=== PATIENT | male | born 1980 | race Caucasian/White ===

== ENCOUNTER 2020-08-16 13:15 | Outpatient (REF) | payer MEDICAID, SELFPAY ==
[2020-08-16 14:51] LABS: MANUAL DIFF FLAG NO
[2020-08-16 15:03] LABS: Basophils Absolute Auto 0.1 X10*3/uL (0.0-0.2); Basophils Percent Auto 0.6 % (0-2); Eosinophils Absolute Auto 0.2 X10*3/uL (0.0-0.4); Eosinophils Percent Auto 2.2 % (0-4); Hematocrit 48.8 % (42-52); Hemoglobin 16.7 g/dl (14.0-18.0); Imm Gran Abs Auto 0.07 X10*3/uL (0.00-0.03); Imm Gran Pct Auto 0.8 % (0.0-0.4); Lymphocytes Absolute Auto 2.4 X10*3/uL (1.2-4.9); Lymphocytes Percent Auto 28.4 % (20-40); Mean Corpuscular HGB Conc 34.2 g/dl (31.0-36.0); Mean Corpuscular Volume 87.6 fL (80-98); Mean Platelet Volume 11.3 fL (9.4-12.4); Monocytes Absolute Auto 0.7 X10*3/uL (0.1-1.2); Monocytes Percent Auto 8.6 % (2-11); Neutrophils Percent Auto 59.4 % (45-73); Platelet Count 246 X10*3/uL (160-400); Red Blood Count 5.57 X10*6/uL (4.60-5.80); Red Cell Distribution Width 13.2 % (11.0-16.0); White Blood Count 8.5 X10*3/uL (4.8-10.8)
[2020-08-16 15:39] LABS: Alanine Aminotransferase 43 U/L (0-40); Alkaline Phosphatase 47 U/L (39-117); Anion Gap 16 (12-20); Aspartate Amino Transferase 23 U/L (5-37); Bilirubin Total 1.1 mg/dL (0.0-1.0); Blood Urea Nitrogen 13 mg/dL (9-16); Calcium 9.5 mg/dL (8.4-10.2); Carbon Dioxide 27 mmol/L (22-29); Chloride 102 mmol/L (96-108); Cholesterol 202 mg/dL; Estimated Glomerular Filt Rate > 60; Glucose Random 88 mg/dL (60-115); Potassium 4.5 mmol/L (3.3-5.1); Sodium 140 mmol/L (135-145)
== END 2020-08-16 13:16 | disposition home or self-care (01) ==
LOC: HO.LAB 13:15
PROVIDERS: PCP Internal Medicine; Visit Provider Internal Medicine
DX: M79.601 Pain in right arm (principal); M79.89 Other specified soft tissue disorders; Z72.0 Tobacco use
CPT/HCPCS: 36415; 80053; 82465; 82550; 85025; 86140

== ENCOUNTER 2020-08-17 17:36 | Outpatient (REF) | payer MEDICAID, SELFPAY ==
--- NOTE | ~2020-08-17 | MR_ITS ---
EXAMINATION: MR ELBOW WITHOUT CONTRAST, RIGHT CLINICAL INFORMATION: Right upper arm pain, weakness, history of torn biceps. COMPARISON: None TECHNIQUE: MRI of the right elbow was performed without contrast on a high field MRI scanner. FINDINGS: MUSCLES/TENDONS: The biceps tendon and distal biceps muscle is not visualized. It may be retracted related to the history of a prior biceps tear. There is some very subtle increased signal along the insertion of the posterior triceps tendon. This could reflect tendinosis or some minimal intrasubstance partial tearing. No transverse defect or tendon retraction. See axial image 10 series 3. The remaining muscles and tendons are normal. LIGAMENTS: Normal. NEUROVASCULAR STRUCTURES: Normal. ARTICULAR CARTILAGE/MARROW: Normal. No effusion. BURSA: Normal. SUBCUTANEOUS SOFT TISSUES: Normal. MR/MR elbow RT wo con IMPRESSION: 1. Biceps tendon and distal muscle, not visualized, likely retracted, related to history of prior biceps tear. 2. Subtle finding along the distal posterior triceps may reflect tendinosis or some minimal intrasubstance partial tearing.
== END 2020-08-17 17:37 | disposition home or self-care (01) ==
LOC: HO.MRI 17:36
PROVIDERS: PCP Internal Medicine; Visit Provider Internal Medicine
DX: M79.621 Pain in right upper arm (principal)
CPT/HCPCS: 73221

== ENCOUNTER 2023-04-25 04:32 | Emergency (ER) | payer OTHER, SELFPAY ==
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
[2023-04-25 04:41] VITALS: PULSE 150; O2SAT 97
[2023-04-25 04:42] VITALS: BMI 33.9
[2023-04-25 04:54] VITALS: BP 131/95; PULSE 132; RESP 12; TEMP 36.8
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
--- NOTE | 2023-04-25 06:01 | PC.NURSE ---
pt currently refusing to provide urine sample at this time, explained to pt the need for urine for care team, pt currently denying to provide sample stating this is not fair .
--- OUTSIDE RECORDS SUMMARY | 2023-04-25 06:16 | XMS_ITS | Continuity of Care Document ---
Author Name Unknown Organization [facility] Address [address] [place] [address]- Care Team Providers Care Manager Of Operations Name Role Phone Not on Staff, PCP Primary Care Physician Unavail able Encounter [facility] [place] Date(s): 06/30/22 - 08/17/[address] [address]- Attending Physician: Jess Yu MD Admitting Physician: Jess Yu MD Referring Physician: Martha Allen NP Allergies, Adverse Reactions, Alerts No Known Allergies Immunizations Given and Recorded Vaccine Date Status Refusal Reason SARS-CoV-2 (COVID-19) mRNA BNT-162b2 vac 11/13/20 Given Medications Flonase 50 mcg/inh nasal spray 2 sprays, Nares, Both, Daily in AM, # 16 Gm, 2 Refills, Maintenance, 06/05/22 18:20:00 EST, [place], [id number], Partial fill upon patient request if the prescription is for a schedule II opioid drug., 2 sprays Nares, Both Daily in AM Start Date: 06/05/22 Status: Ordered predniSONE 10 mg oral tablet See Instructions, 4 tabs PO QD x3days, then 3 tabs PO QD x3days, then 2 tabs PO QD x3days, 1 tabs PO QD x3days., # 30 tablet, 0 Refills, Maintenance, 06/05/22 18:20:00 EST, [place], [id number], Partial fill upon patient request if the prescript... Start Date: 06/05/22 Status: Ordered Patient Care team information Care Team Personnel Name: Not on Staff, PCP Position: S Physician (General Medicine) Member Role: PCP Care Team Related Persons Name: TAMIKO LAY [address]: [address] [address]
--- OUTSIDE RECORDS SUMMARY | 2023-04-25 06:16 | XMS_ITS | Continuity of Care Document ---
Author Name Unknown Organization [facility] Address [address] [place] [address]- Care Team Providers Care Can Runner Name Role Phone Not on Staff, PCP Primary Care Physician Unavail able Encounter [facility] [place] Date(s): 06/05/22 - 06/12/22 [facility] [address] [place] [address]- Encounter Diagnosis Blocked ear(Discharge Diagnosis) - 06/05/22 Attending Physician: Aashish Conrad DO Referring Physician: Not on Staff, Referring MD Allergies, Adverse Reactions, Alerts No Known Allergies Immunizations Given and Recorded Vaccine Date Status Refusal Reason SARS-CoV-2 (COVID-19) mRNA BNT-162b2 vac 11/13/20 Given Medications Flonase 50 mcg/inh nasal spray 2 sprays, Nares, Both, Daily in AM, # 16 Gm, 2 Refills, Maintenance, 06/05/22 18:20:00 EST, [place], [id number], Partial fill upon patient request [...] the prescript... Start Date: 06/05/22 Status: Ordered Problem List Diagnosis Diagnosis Type Effective Dates Health Status Clini brigid Service Informant Blocked ear Discharge Diagnosis 06/05/22 Vital Signs Most recent to oldest [Reference Range]: 1 Oxygen Saturation [94-100 %] 100 % (06/05/22 5:59 PM) Pulse Rate [55-90 bpm] 68 bpm (06/05/22 5:59 PM) Blood Pressure [90-138/55-84 mm Hg] 149/ 91mm Hg *H* (06/05/22 5:59 PM) Respiratory Rate [16-30 br/min] 16 br/mi n (06/05/22 5:59 PM) Temperature [96.8-100.4 DegF] 97.9 DegF (06/05/22 5:59 PM) Mode of Delivery (Oxygen) Room air (06/05/22 5:59 PM) Blood pressure sites Arm, right (06/05/22 5:59 PM) Temperature Route Temporal (06/05/22 5:59 PM) Note * Gato Carrasco: PERFORM, SIGN, VERIFY Event Display: Patient Education/Instruction Authored Date: [id number] [facility] *[facility] Clinical Summary Name KYLE GAONA Age 42 Years 1980 PCP Not on Staff, PCP PCP Phone Visit Date 06/05/2022 13:46:00 Additional Instructions: Scheduled Appointments?? Future Appointments ?No Future Appointments Scheduled Follow-Up Instructions ?? Diagnosis Medications: Please continue your medications until treatment is completed or stopped by your provider. Discuss any questions related to medications with your provider. New Medications [id number], [address], [place] [id number], [phone] Fluticasone Nasal (Flonase 50 mcg/inh nasal spray) 2 spray(s) Nares, Both Daily in the morning. Refills: 2. Next Dose: PredniSONE (predniSONE 10 mg oral tablet) 4 tabs PO QD x3days, then 3 tabs PO QD x3days, then 2 tabs PO QD x3days, 1 tabs PO QD x3days.. Refills: 0. Next Dose: Allergy Info:?? Medications Given This Visit Future Orders ?No future orders Vital Signs Height Weight BMI Blood Pressure 149 mm Hg/91 mm Hg Temperature 97.9 DegF Pulse Rate 68 bpm Respiratory Rate 16 br/min 02 Sat Mode of Delivery 100 %/Room air You can now view a summary of your hospital visit from the comfort of your home through a free online portal called [employer]. [employer] is a website that allows you to securely view your medical information including discharge summary, medications and follow-up visits. ??You can alsosend a secure electronic message to your doctor???s office to request appointments, renew medications or just ask a question. You can enroll at [email or web address] or register during your next office visit. Disclaimer:?? The information provided is of a general nature and is intended to be used in conjunction with the recommendations and advice of your health care practitioner. ??Every effort has been made to ensure that the information provided is accurate and complete at the time it is provided to you however, as your needs change, or, as new ??information becomes available, different or additional instructions may be required. If you have questions, please consult with your primary care provider or pharmacist, as appropriate. ??This information is not intended to serve as substitution for assessment and evaluation by a qualified health care provider. If you do not have a primary care provider, you may find a [facility] provider by calling [facility] at [phone]. For information about the plan of care including goals and instructions for your diagnosis, please see the patient education orders section of this document. Patient Education Materials?? The content of this educational material or handout may have been modified, supplemented, or adapted from its original content and format to support your individualized medical care. Patient Care team information Care Team Personnel Name: Not on Staff, PCP Position: S Physician (General Medicine) Member Role: PCP Care Team Related Persons Name: TAMIKO LAY Address: home [address] [place] [address]
--- OUTSIDE RECORDS SUMMARY | 2023-04-25 06:16 | XMS_ITS | Continuity of Care Document ---
Author Name Unknown Organization [facility] Address [address] [place] [address]- Care Team Providers Care Sandblast Operator Name Role Phone Not on Staff, PCP Primary Care Physician Unavail able [place] [facility] [place] [id number] Date(s): 07/18/22 - 08/17/[address] [address]- Attending Physician: Tomasz Pepper Admitting Physician: Tomasz Pepper Referring Physician: AdmtrTomasz Allergies, Adverse Reactions, Alerts No Known Allergies Immunizations Given and Recorded Vaccine Date Status Refusal Reason SARS-CoV-2 (COVID-19) mRNA BNT-162b2 vac 11/13/20 Given Medications Flonase 50 mcg/inh nasal spray 2 sprays, Nares, Both, Daily in AM, # 16 Gm, 2 Refills, Maintenance, 06/05/22 18:20:00 EST, [place], [id number], Partial fill upon patient request [...] Role: PCP Care Team Related Persons Name: ROSANNEJENNIFERTAMIKO Address: [address] [place] [address]
--- OUTSIDE RECORDS SUMMARY | 2023-04-25 06:16 | XMS_ITS | Continuity of Care Document ---
Author Name Unknown Organization [facility] Address [address] [place] [address]- Care Team Providers Care Speech Lang Path Therapist Name Role Phone Not on Staff, PCP Primary Care Physician Unavail able Encounter [facility] [place] R [id number] Date(s): 11/21/22 - 12/21/[address] [address]- Attending Physician: Tomasz Pepper Admitting Physician: Tomasz Pepper Referring Physician: AdmtrTomasz Allergies, Adverse Reactions, Alerts No Known Allergies Immunizations Given and Recorded Vaccine Date Status Refusal Reason SARS-CoV-2 (COVID-19) mRNA BNT-162b2 vac 11/13/20 Given Medications Flonase 50 mcg/inh nasal spray 2 sprays, Nares, Both, Daily in AM, # 16 Gm, 2 Refills, Maintenance, 06/05/22 18:20:00 EST, [place], [id number], Partial fill upon patient request [...] Care Team Related Persons Name: ROSANNEJENNIFERTAMIKO Address: [address] [place] [address]
--- OUTSIDE RECORDS SUMMARY | 2023-04-25 06:16 | XMS_ITS | Continuity of Care Document ---
Author Name Unknown Organization [facility] Address [address] [place] [address]- Care Team Providers Care Belly Packer Name Role Phone Not on Staff, PCP Primary Care Physician Unavail able Encounter [facility] [place] Date(s): 01/18/23 - 03/22/[address] [address]- Attending Physician: Jose Jesus MD Admitting Physician: Jose Jesus MD Allergies, Adverse Reactions, Alerts No Known Allergies Immunizations Given and Recorded Vaccine Date Status Refusal Reason SARS-CoV-2 (COVID-19) mRNA BNT-162b2 vac 11/13/20 Given Medications Flonase 50 mcg/inh nasal spray 2 sprays, Nares, Both, Daily in AM, # 16 Gm, 2 Refills, Maintenance, 06/05/22 18:20:00 EST, [place], [id number], Partial fill upon patient request [...] Related Persons Name: TAMIKO LAY Address: home [address] [place] [address] [place] [id number]
--- OUTSIDE RECORDS SUMMARY | 2023-04-25 06:16 | XMS_ITS | Continuity of Care Document ---
Author Name Unknown Organization [facility] Address [address] [place] [address]- Care Team Providers Care Building Carpenter Name Role Phone Not on Staff, PCP Primary Care Physician Unavail able Encounter [facility] Date(s): 07/18/22 - 08/17/[address] [address]- Allergies, Adverse Reactions, Alerts No Known Allergies Immunizations Given and Recorded Vaccine Date Status Refusal Reason SARS-CoV-2 (COVID-19) mRNA BNT-162b2 vac 11/13/20 Given Medications Flonase 50 mcg/inh nasal spray 2 sprays, Nares, Both, Daily in AM, # 16 Gm, 2 Refills, Maintenance, 06/05/22 18:20:00 EST, [place], [id number], Partial fill upon patient request [...] Related Persons Name: TAMIKO LAY Address: home [address] [place] [address] [place] [id number]
--- OUTSIDE RECORDS SUMMARY | 2023-04-25 06:16 | XMS_ITS | Continuity of Care Document ---
Author Name Unknown Organization [facility] Address [address] [place] [address]- Care Team Providers Care Senior Counsel Commercial Name Role Phone Not on Staff, PCP Primary Care Physician Unavail able Encounter [facility] [place]CT R [id number] Date(s): 02/20/23 - 03/22/[address] [address]- Attending Physician: Tomasz Pepper Admitting Physician: Tomasz Pepper Referring Physician: AdmtrTomasz Allergies, Adverse Reactions, Alerts No Known Allergies Immunizations Given and Recorded Vaccine Date Status Refusal Reason SARS-CoV-2 (COVID-19) mRNA BNT-162b2 vac 11/13/20 Given Medications Flonase 50 mcg/inh nasal spray 2 sprays, Nares, Both, Daily in AM, # 16 Gm, 2 Refills, Maintenance, 06/05/22 18:20:00 EST, [place], [id number], Partial fill upon patient request [...] Care Team Related Persons Name: ROSANNEJENNIFERTAMIKO Address: [address] [place] [address]
--- OUTSIDE RECORDS SUMMARY | 2023-04-25 06:16 | XMS_ITS | Continuity of Care Document ---
Author Name Unknown Organization [facility] Address [address] [place] [address]- Care Team Providers Care Clam Grower Name Role Phone Not on Staff, PCP Primary Care Physician Unavail able Encounter [facility] [place] Date(s): 06/05/22 - 07/05/22 [facility] [address] [place] [address]- Attending Physician: Tomasz Pepper Admitting Physician: AdmTomasz thornton Referring Physician: Admtr, Ar8 Allergies, Adverse Reactions, Alerts No Known Allergies Immunizations Given and Recorded Vaccine Date Status Refusal Reason SARS-CoV-2 (COVID-19) mRNA BNT-162b2 vac 11/13/20 Given Medications Flonase 50 mcg/inh nasal spray 2 sprays, Nares, Both, Daily in AM, # 16 Gm, 2 Refills, Maintenance, 06/05/22 18:20:00 EST, [place], [id number], Partial fill upon patient request [...] Related Persons Name: TAMIKO LAY Address: home [address] [place] [address], [place] [address]
--- OUTSIDE RECORDS SUMMARY | 2023-04-25 06:16 | XMS_ITS | Continuity of Care Document ---
Author Name Unknown Organization [facility] Address [address] [place] [address]- Care Team Providers Care Executive Vice President And Chief Operating Officer Name Role Phone Not on Staff, PCP Primary Care Physician Unavail able [place] [facility] [place]/20/[place] - 12/21/[address] [address]- Attending Physician: Jess Yu MD Admitting Physician: Jess Yu MD Allergies, Adverse Reactions, Alerts No Known Allergies Immunizations Given and Recorded Vaccine Date Status Refusal Reason SARS-CoV-2 (COVID-19) mRNA BNT-162b2 vac 11/13/20 Given Medications Flonase 50 mcg/inh nasal spray 2 sprays, Nares, Both, Daily in AM, # 16 Gm, 2 Refills, Maintenance, 06/05/22 18:20:00 EST, [place], [id number], Partial fill upon patient request [...] Related Persons Name: TAMIKO LAY Address: home [address] [place] [address] [place] [address]
--- OUTSIDE RECORDS SUMMARY | 2023-04-25 06:16 | XMS_ITS | Continuity of Care Document ---
Author Name Unknown Organization [facility] Address [address] [place] [address]- Care Team Providers Care Front End Java Developer Name Role Phone Not on Staff, PCP Primary Care Physician Unavail able Encounter [facility] [place] Date(s): 08/22/22 - 10/22/[address] [address]- Attending Physician: Jess Yu MD Admitting Physician: Jess Yu MD Referring Physician: Martha Allen NP Allergies, Adverse Reactions, Alerts No Known Allergies Immunizations Given and Recorded Vaccine Date Status Refusal Reason SARS-CoV-2 (COVID-19) mRNA BNT-162b2 vac 11/13/20 Given Medications Flonase 50 mcg/inh nasal spray 2 sprays, Nares, Both, Daily in AM, # 16 Gm, 2 Refills, Maintenance, 06/05/22 18:20:00 EST, [place], [id number], Partial fill upon patient request [...] Team Related Persons Name: TAMIKO LAY Address[address] [address]
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
[2023-04-25 08:41] VITALS: BP 134/84; PULSE 93; RESP 18; TEMP 36.5; O2SAT 98
--- NOTE | 2023-04-25 09:47 | PC.NURSE ---
Macario was awake in the common area. Patient refused blood and urine sample and said he felt it was disrespectful that the dr was requesting these from him. Patient was frustrated with the process but remained calm and polite. CARE team consulted with MD, they decided patient was medically cleared to discharge. Patient was discharged with belongings.
== END 2023-04-25 09:53 | disposition home or self-care (01) ==
PROVIDERS: Emergency Provider Emergency Medicine; PCP Internal Medicine
DX: R45.851 Suicidal ideations (principal); F33.1 Major depressive disorder, recurrent, moderate; R45.1 Restlessness and agitation; Z63.8 Other specified problems related to primary support group
CPT/HCPCS: 99284; 99285; S9485